=== PATIENT | female | born 1970 | race Caucasian/White ===

== ENCOUNTER → 2016-03-31 | Outpatient (CLI) | payer OTHER ==
[~2016-03-31] MED LIST: ASPCH81X PO; CHOL1000 PO; FERR324T PO; GLIP5TAB11 PO; LISI10TA PO; METFTAB PO; MULTCAP7 PO; MULTTAB58 PO; OMEG10007 PO; PRLSR20 PO; RIZA10TA18 PO; VTMB12100 PO; ZNTT/150 PO
[2016-03-31 12:56] LABS: ALT/SGPT 89 U/L (12-78); BLOOD UREA NITROGEN 13 mg/dl (7-18); BUN/CREATININE RATIO 17.6 (10-20); CALCIUM 9.1 mg/dl (8.5-10.1); CARBON DIOXIDE 25 mmol/L (21-32); CHLORIDE 102 mmol/L (98-107); CREATININE 0.72 mg/dl (0.60-1.20); GLUCOSE 199 mg/dl (70-99); POTASSIUM 4.2 mmol/L (3.5-5.1); SODIUM 137 mmol/L (136-145)
[2016-03-31 12:59] LABS: ALB/GLOB RATIO 1.1 (0.9-2); ALKALINE PHOSPHATASE 63 U/L (45-117); AST/SGOT 73 U/L (15-37)
[2016-03-31 13:02] LABS: ESTIMATED AVERAGE GLUCOSE 194 mg/dl; HA1C FLAG Normal (Normal)
== END | disposition home or self-care (01) ==
LOC: C.LABPVFM 10:03
PROVIDERS: ATTEND Family Medicine
DX: E11.65 Type 2 diabetes mellitus with hyperglycemia (principal)

== ENCOUNTER → 2016-05-19 | Outpatient (CLI) | payer OTHER ==
--- NOTE | 2016-05-19 13:57 | MAMMOGRAPHY REPORT ---
BILATERAL DIGITAL SCREENING MAMMOGRAM TOMOSYNTHESIS WITH CAD: 05/19/2016 TECHNIQUE: Breast tomosynthesis in addition to standard 2D mammography was performed. Current study was also evaluated with a Computer Aided Detection (CAD) system. COMPARISON: Comparison is made to exams dated: 12/12/2012 mammogram, 10/20/2010 mammogram, 11/10/2011 mammogram, 10/24/2010 mammogram, and 10/24/2010 ultrasound - [facility]. BREAST COMPOSITION: The tissue of both breasts is heterogeneously dense, which may obscure small ma sses. FINDINGS: No suspicious masses, calcifications, or areas of architectural distortion are noted in e ither breast. There has been no significant interval change compared to prior exams. IMPRESSION: ACR BI-RADS CATEGORY 1: NEGATIVE There is no mammographic evidence of malignancy. A 1 year screening mammogram is recommended. The p atient will receive written notification of the results. Approximately 10% of breast cancers are not detected with mammography. A negative mammographic repor t should not delay biopsy if a clinically suggestive mass is present. Heather Figueroa M.D. ah/:05/19/2016 12:05:04 Delivery Driver: Carmita CALDWELL(R)(M), [facility] letter sent: Normal 1/2 BI-RADS Code: ACR BI-RADS Category 1: Negative
== END | disposition home or self-care (01) ==
LOC: C.MAMM 10:39
PROVIDERS: ATTEND Family Medicine
DX: Z12.31 Encounter for screening mammogram for malignant neoplasm of breast (principal)

== ENCOUNTER → 2016-07-28 | Outpatient (CLI) | payer OTHER ==
[2016-07-28 18:10] LABS: ALT/SGPT 103 U/L (12-78); AST/SGOT 63 U/L (15-37); BLOOD UREA NITROGEN 17 mg/dl (7-18); BUN/CREATININE RATIO 23.2 (10-20); CALCIUM 8.9 mg/dl (8.5-10.1); CARBON DIOXIDE 26 mmol/L (21-32); CHLORIDE 104 mmol/L (98-107); CREATININE 0.74 mg/dl (0.60-1.20); GLUCOSE 184 mg/dl (70-99); POTASSIUM 4.2 mmol/L (3.5-5.1); SODIUM 139 mmol/L (136-145)
[2016-07-28 18:13] LABS: ALB/GLOB RATIO 1.1 (0.9-2); ALKALINE PHOSPHATASE 58 U/L (45-117); CHOLESTEROL 224 mg/dl (0-200); CHOLESTEROL/HDL RATIO 6.6; HDL CHOLESTEROL 34 mg/dl; LDL CHOLESTEROL CALCULATED 129 mg/dl; TRIGLYCERIDES 304 mg/dl (0-150); VERY LOW DENSITY LIPOPROT CALC 61 mg/dl
[2016-07-28 18:21] LABS: RATIO 6.6 mcg/mg (0-30.0)
[2016-07-29 07:14] LABS: ESTIMATED AVERAGE GLUCOSE 194 mg/dl; HA1C FLAG Normal (Normal)
== END | disposition home or self-care (01) ==
LOC: C.LABPVFM 10:18
PROVIDERS: ATTEND Family Medicine
DX: R74.8 Abnormal levels of other serum enzymes (principal)

== ENCOUNTER → 2016-08-04 | Outpatient (CLI) | payer OTHER | END | disposition home or self-care (01) | LOC: C.LABPVFM 08:44 | PROVIDERS: ATTEND Family Medicine | DX: E11.65 Type 2 diabetes mellitus with hyperglycemia (principal); R74.8 Abnormal levels of other serum enzymes ==

== ENCOUNTER → 2016-08-11 | Outpatient (CLI) | payer OTHER ==
--- NOTE | 2016-08-11 09:33 | DIAGNOSTIC IMAGING REPORT ---
BILIARY ULTRASOUND CLINICAL HISTORY: Elevated liver enzymes. Diabetes type 2. COMPARISON STUDY: 07/14/2007 FINDINGS: The pancreas appears sonographically normal. The liver is of increased echogenicity, nonspecific finding most often seen in hepatic steatosis. There are no focal hepatic masses. The gallbladder appears sonographically normal. There is no ductal dilatation. The common buttock measures 5 mm. There is no right-sided hydronephrosis. IMPRESSION: Increased hepatic echogenicity, a finding most likely secondary to hepatic steatosis. Otherwise normal study. Electronically signed by: Kenton Iniguez M.D. 08/11/2016 9:32 AM Dictated Date/Time: 08/11/2016 9:31 AM
== END | disposition home or self-care (01) ==
LOC: C.ULTR 08:41
PROVIDERS: ATTEND Family Medicine
DX: E11.65 Type 2 diabetes mellitus with hyperglycemia (principal); R74.8 Abnormal levels of other serum enzymes

== ENCOUNTER → 2016-08-17 | Outpatient (CLI) | payer OTHER | END | disposition home or self-care (01) | LOC: C.LABPVFM 16:20 | PROVIDERS: ATTEND Nurse Practitioner | DX: R30.0 Dysuria (principal) ==

== ENCOUNTER → 2016-10-21 | Outpatient (CLI) | payer OTHER | END | disposition home or self-care (01) | LOC: C.LABPVFM 07:57 | PROVIDERS: ATTEND Nurse Practitioner Family | DX: N39.0 Urinary tract infection, site not specified (principal) ==

== ENCOUNTER → 2016-11-03 | Outpatient (CLI) | payer OTHER ==
[2016-11-03 17:34] LABS: URINE APPEARANCE CLEAR (CLEAR); URINE BILIRUBIN NEG (NEG); URINE COLOR YELLOW; URINE NITRITE NEG (NEG); URINE PH 6.5 (4.5-7.5); URINE SPECIFIC GRAVITY 1.021 (1.000-1.030); UROBILINOGEN NEG (NEG)
[2016-11-03 17:43] LABS: MANUAL MICROSCOPIC REQUIRED? NO; REVIEW REQ? NO
[2016-11-03 18:21] LABS: ALT/SGPT 112 U/L (12-78); AST/SGOT 68 U/L (15-37); BLOOD UREA NITROGEN 11 mg/dl (7-18); BUN/CREATININE RATIO 14.9 (10-20); CALCIUM 9.1 mg/dl (8.5-10.1); CARBON DIOXIDE 27 mmol/L (21-32); CHLORIDE 103 mmol/L (98-107); CHOLESTEROL 199 mg/dl (0-200); CREATININE 0.75 mg/dl (0.60-1.20); GLUCOSE 148 mg/dl (70-99); POTASSIUM 4.1 mmol/L (3.5-5.1); SODIUM 139 mmol/L (136-145); TRIGLYCERIDES 406 mg/dl (0-150)
[2016-11-03 18:23] LABS: ALKALINE PHOSPHATASE 60 U/L (45-117)
[2016-11-03 18:31] LABS: CHOLESTEROL/HDL RATIO 6.4; HDL CHOLESTEROL 31 mg/dl
[2016-11-04 08:18] LABS: ESTIMATED AVERAGE GLUCOSE 177 mg/dl; HA1C FLAG Normal (Normal)
== END | disposition home or self-care (01) ==
LOC: C.LABPVFM 11:53
PROVIDERS: ATTEND Nurse Practitioner Family
DX: E78.5 Hyperlipidemia, unspecified (principal); E11.65 Type 2 diabetes mellitus with hyperglycemia; I10 Essential (primary) hypertension; R74.8 Abnormal levels of other serum enzymes; N39.0 Urinary tract infection, site not specified

== ENCOUNTER → 2016-12-15 | Outpatient (CLI) | payer OTHER ==
[2016-12-15 17:58] LABS: TOTAL IRON BINDING CAPACITY 420 mcg/dl (250-450)
[2016-12-21 17:35] LABS: IGA SERUM 148 mg/dL (81-463); TIS TRANS IGA 1 U/mL (<4)
== END | disposition home or self-care (01) ==
LOC: C.LABPVFM 15:43
PROVIDERS: ATTEND Physician Assistant
DX: R74.8 Abnormal levels of other serum enzymes (principal)

== ENCOUNTER 2016-12-20 10:19 | Emergency (ER) | payer OTHER ==
[~2016-12-20] VITALS: Ht 165.1 cm; Wt 98.7 kg
[~2016-12-20 10:19] MED LIST changes: -ASPCH81X PO; -CHOL1000 PO; -GLIP5TAB11 PO; -MULTCAP7 PO; -VTMB12100 PO
[2016-12-20 10:24] VITALS: TEMP 37; Ht 165.1 cm; Wt 98.7 kg
[2016-12-20 10:47] VITALS: O2SAT 99
[2016-12-20] MEDS ORDERED: MULTCAP7 PO (11:06)
[2016-12-20] MEDS ORDERED: VTMB12100 PO (11:06)
[2016-12-20] MEDS ORDERED: CHOL1000 PO (11:06)
[2016-12-20] MEDS ORDERED: GLIP5TAB11 PO (11:06)
[2016-12-20] MEDS ORDERED: SODIUM CHLORIDE 0.9% 1000ML 1,000 ML IV ONE (11:27)
[2016-12-20] MEDS ORDERED: SODIUM CHLORIDE 0.9% 1000ML 1,000 ML IV STA (11:27)
[2016-12-20 12:12] LABS: BASO % 0.2 %; BASO ABS # 0.02 K/uL (0-0.2); COMPLETE YES; EOS % 1.5 %; HEMATOCRIT 42.3 % (37-47); IG% 0.2 %; LYMPH % 29.7 %; LYMPH ABS # 2.89 K/uL (1.2-3.4); MEAN CELL VOLUME 87.6 fL (80-100); MEAN CORPUSCULAR HEMOGLOBIN 30.2 pg (25-34); MEAN CORPUSCULAR HGB CONC 34.5 g/dl (32-36); MEAN PLATELET VOLUME 10.6 fL (7.4-10.4); MONO % 5.9 %; NEUT % 62.5 %; PLATELET COUNT 293 K/uL (130-400); RED BLOOD COUNT 4.83 M/uL (4.2-5.4); WHITE BLOOD COUNT 9.72 K/uL (4.8-10.8)
[2016-12-20 12:28] LABS: BUN/CREATININE RATIO 14.6 (10-20); CALCIUM 9.9 mg/dl (8.5-10.1); CREATININE 0.78 mg/dl (0.60-1.20); POTASSIUM 4.1 mmol/L (3.5-5.1)
--- NOTE | 2016-12-20 12:50 | EMERGENCY ROOM VISIT NOTE ---
History Report prepared by Joesph: Taina Peter Under the Supervision of: Dr. Kory Sewell M.D. First contact with patient: 11:19 Chief Complaint: CHOKING Stated Complaint: DIFFICULTY SWALLOWING Nursing Triage Summary: pt states having trouble swallowing x 1 week worsening today, pt states seen physician and scheduled for barium swallow this sunday, pt states when swallowing coffe, "I burped and coughed back up some, I notied last night when I took my metformin, they felt like they were stuck so I didn't take my medicine this morning." Pt states sore throat left side. History of Present Illness The patient is a 46 year old female who presents to the Emergency Room with complaints of worsening problems swallowing for the past week. The patient has had this multiple times in the past. In 2006 she had an EGD, was dilated, and was placed on Omeprazole. She was dilated again sometime in 2011-. She has had no problems until recently. The patient has had difficulty swallowing. She saw a PA-Priyanka at her GI office last week and had blood work. She was scheduled for a barium swallow at the end of the week. The patient states that she has been having trouble swallowing anything now. She has difficulty swallowing pills. She feels like liquids are coming back up when she swallows. The patient states that she is constantly clearing her throat. She called her GI office today and they moved up her barium swallow to tomorrow, but she is concerned that she won' t be able to swallow for this test. The patient rates her pain as a 5/10 in severity. Source of History: patient Onset: 1 week ago Position: throat Symptom Intensity: 5/10 Timing: worsening Modifying Factors (Worsening): other (swallowing) Review of Systems See HPI for pertinent positives & negatives. A total of 10 systems reviewed and were otherwise negative. Past Medical & Surgical Medical Problems: (1) Cervicalgia (2) Esophageal reflux (3) Fibroids (4) Menorrhagia Old medical records were reviewed. Nurse's notes were reviewed and I agree with. Family History No pertinent history stated. Social History Smoking Status: Never Smoker Drug Use: none Marital Status: Housing Status: lives with significant other Occupation Status: employed Current/Historical Medications Scheduled Cholecalciferol (Vitamin D3), 1,000 INTER.UNIT PO DAILY Cyanocobalamin (Vitamin B-12), Unknown Dose PO DAILY Glipizide (Glucotrol), 5 MG PO BID Lisinopril (Prinivil), 10 MG PO DAILY Metformin Ext Rel (Glucophage Ext Rel), 1,000 MG PO BID Multiple Vitamins W/ Minerals (Eye Vitamins), 1 TAB PO DAILY Omeprazole (Prilosec), 20 MG PO DAILY Ranitidine (Zantac), 150 MG PO DAILY PRN Rizatriptan Benzoate (Maxalt), 10 MG PO PRN Allergies Coded Allergies: No Known Allergies (Unverified , 07/14/07) Physical Exam Vital Signs Date Time Temp Pulse Resp B/P (MAP) Pulse Ox O2 Delivery O2 Flow Rate FiO2 12/20/16 13:55 87 15 134/91 98 12/20/16 13:03 95 16 143/88 94 Room Air 12/20/16 11:47 105 16 150/108 100 Room Air 12/20/16 10:47 99 Room Air 12/20/16 10:24 37.0 97 18 161/117 98 Room Air Physical Exam General: Well developed well nourished non ill appearing middle aged female in no acute distress, breathing comfortably on room air. Normal speech HEENT: Normal cephalic atraumatic. Pupils are equal round and reactive to light. Extraocular movements are intact. Oropharynx is pink with moist mucous membranes. No swelling of the mouth lips or tongue. No hoarse voice, appears to be swallowing secretions. Neck: Supple with a midline trachea. No meningeal signs or stiffness, no JVD or bruits. No Stridor. Chest: Clear to auscultation bilaterally. No wheezes or rhonchi. No increased work of breathing. Heart: regular rate and rhythm. Abdomen: Soft nontender, nondistended without rebound guarding or rigidity. Extremities: No cyanosis clubbing or edema. No calf tenderness or assymetry Spine/Back. Non tender to palpation. No CVA tenderness Skin: Good turgor without rashes. Neurologic exam: Cranial nerves two through 12 are intact. Motor and sensation are intact and symmetrical throughout. Medical Decision & Procedures ER Provider Diagnostic Interpretation: Chest x-ray preliminary report per Dr. Lennon was normal. Laboratory Results 12/20/16 11:50 Red Blood Count 4.83, Mean Corpuscular Volume 87.6, Mean Corpuscular Hemoglobin 30.2, Mean Corpuscular Hemoglobin Concent 34.5, Mean Platelet Volume 10.6, Neutrophils (%) (Auto) 62.5, Lymphocytes (%) (Auto) 29.7, Monocytes (%) (Auto) 5.9, Eosinophils (%) (Auto) 1.5, Basophils (%) (Auto) 0.2, Neutrophils # (Auto) 6.07, Lymphocytes # (Auto) 2.89, Monocytes # (Auto) 0.57, Eosinophils # (Auto) 0.15, Basophils # (Auto) 0.02 12/20/16 11:50 Test 12/20/16 11:50 White Blood Count 9.72 K/uL (4.8-10.8) Red Blood Count 4.83 M/uL (4.2-5.4) Hemoglobin 14.6 g/dL (12.0-16.0) Hematocrit 42.3 % (37-47) Mean Corpuscular Volume 87.6 fL (80-100) Mean Corpuscular Hemoglobin 30.2 pg (25-34) Mean Corpuscular Hemoglobin Concent 34.5 g/dl (32-36) Platelet Count 293 K/uL (130-400) Mean Platelet Volume 10.6 fL (7.4-10.4) Neutrophils (%) (Auto) 62.5 % Lymphocytes (%) (Auto) 29.7 % Monocytes (%) (Auto) 5.9 % Eosinophils (%) (Auto) 1.5 % Basophils (%) (Auto) 0.2 % Neutrophils # (Auto) 6.07 K/uL (1.4-6.5) Lymphocytes # (Auto) 2.89 K/uL (1.2-3.4) Monocytes # (Auto) 0.57 K/uL (0.11-0.59) Eosinophils # (Auto) 0.15 K/uL (0-0.5) Basophils # (Auto) 0.02 K/uL (0-0.2) RDW Standard Deviation 40.9 fL (36.4-46.3) RDW Coefficient of Variation 12.7 % (11.5-14.5) Immature Granulocyte % (Auto) 0.2 % Immature Granulocyte # (Auto) 0.02 K/uL (0.00-0.02) Anion Gap 9.0 mmol/L (3-11) Est Creatinine Clear Calc Drug Dose 104.8 ml/min Estimated GFR () 105.7 Estimated GFR (Non- 91.2 BUN/Creatinine Ratio 14.6 (10-20) Calcium Level 9.9 mg/dl (8.5-10.1) Total Bilirubin 0.4 mg/dl (0.2-1) Direct Bilirubin 0.1 mg/dl (0-0.2) Aspartate Amino Transf (AST/SGOT) 51 U/L (15-37) Alanine Aminotransferase (ALT/SGPT) 86 U/L (12-78) Alkaline Phosphatase 67 U/L (45-117) Total Protein 8.5 gm/dl (6.4-8.2) Albumin 4.3 gm/dl (3.4-5.0) Lipase 157 U/L (73-393) Laboratory studies as stated above per my review. Medications Administered Medications (Trade) Dose Ordered Sig/Shai Route Start Time Stop Time Status Last Admin Dose Admin Sodium Chloride 1,000 ml @ 999 mls/hr Q1H1M STAT IV 12/20/16 11:27 12/20/16 12:27 DC 12/20/16 11:51 999 MLS/HR ECG Indication: other Rate (beats per minute): 94 Rhythm: normal sinus Findings: no acute ischemic change, no ectopy Comparison ECG Date: 05/04/2012 Change: no significant change ED Course 1119: Past medical records reviewed. The patient was evaluated in room A12B, and a complete history and physical examination were performed. 1127: NSS 1000 ml @ 150 mls/hr IV, NSS 1000 ml @ 999 mls/hr IV 1144: I spoke with Dr. Valadez of GI. We discussed the patient's treatment plan. His office will call the patient tomorrow and plans to scope her tomorrow. He requested she consume only clear liquids for the rest of the day today. 1342: I reassessed the patient at this time. She is feeling better and resting comfortably. I discussed the results and treatment plan with the patient. I answered all pertaining questions that she had. She expressed understanding and verbalized agreement. The patient will be discharged home. Medical Decision Differential diagnoses includes food bolus, esophageal stricture, electrolyte or metabolic abnormality. This patient comes in as described above. She has a history of esophageal stricture. She saw her GI specialist in as scheduled of a barium swallow this coming Sunday. She feels that she's gotten worse and that has had an increasing hard time swallowing her pills at times. She appears well on exam. She is not drooling. She was able drink some water here. IV access established and she was hydrated liter IV normal saline. She has no significant electrolyte or metabolic abnormality. EKG does not suggest cardiac disease. She's no had no acute electrolyte or metabolic abnormalities. Chest x -ray was unremarkable. I discuss case with Dr. Valadez, her demographic analyst, he wants to have her use liquids today and keep nothing by mouth after midnight they will call her likely scope her tomorrow. At this point, she has nothing to suggest acute food bolus. The patient was happy with plan and was discharged home with close follow-up. Medication Reconcilliation Current Medication List: was personally reviewed by me Blood Pressure Screening Patient's blood pressure: Normal blood pressure Consults Time Called: 1141 Consulting Physician: Dr. Valadez Returned Call: [phone] Valadez of GI. We discussed the patient's treatment plan. His office will call the patient tomorrow and plans to scope her tomorrow. He requested she consume only clear liquids for the rest of the day today. Impression Primary Impression: Dysphagia Additional Impression: Esophageal stricture Scribe Attestation The scribe's documentation has been prepared under my direction and personally reviewed by me in its entirety. I confirm that the note above accurately reflects all work, treatment, procedures, and medical decision making performed by me. Departure Information Dispostion Home / Self-Care Referrals Serafin Koch M.D. (PCP) Forms HOME CARE DOCUMENTATION FORM, IMPORTANT VISIT INFORMATION, WORK / SCHOOL INSTRUCTIONS Patient Instructions My [facility] Additional Instructions Rest. Drink plenty of fluids. Use only clear liquids today Follow-up with Dr. valadez tomorrow, he'll be calling you Do not eat or drink anything after midnight Return if: Worsening of symptoms, fever or chills, shortness of breath, any new problems or concerns. Problem Qualifiers Primary Impression: Dysphagia Dysphagia type: unspecified Qualified Codes: R13.10 - Dysphagia, unspecified
[2016-12-20 13:55] VITALS: BP 134/91; PULSE 87; O2SAT 98
--- NOTE | 2016-12-20 16:58 | DIAGNOSTIC IMAGING REPORT ---
CHEST ONE VIEW PORTABLE CLINICAL HISTORY: CHEST PAIN pain COMPARISON STUDY: 05/04/2012 FINDINGS: The bones soft tissues and hemidiaphragms are normal. The cardiomediastinal silhouette is normal. The lungs are clear. The pulmonary vasculature is normal. IMPRESSION: Negative chest. The above report was generated using voice recognition software. It may contain grammatical, syntax or spelling errors. Electronically signed by: Ramy Kay M.D. 12/20/2016 4:57 PM Dictated Date/Time: 12/20/2016 4:57 PM
[2016-12-21] MEDS ORDERED: ASPCH81X PO (12:34)
[2016-12-21] MEDS ORDERED: PROPOFOL IV EMULSION 10 MG/ML 20 ML VIAL IV ONE (13:19)
[2016-12-21] MEDS ORDERED: LIDOCAINE HCL 2% 2 ML VIAL (20MG/ML) ONE (13:19)
== END 2016-12-20 13:57 | disposition home or self-care (01) ==
LOC: C.EDB 10:21 → C.EDA 13:57
DX: K22.2 Esophageal obstruction (principal); K21.9 Gastro-esophageal reflux disease without esophagitis; Z79.84 Long term (current) use of oral hypoglycemic drugs; Z79.899 Other long term (current) drug therapy

== ENCOUNTER → 2016-12-21 | Day surgery (SDC) | payer OTHER ==
[~2016-12-21] VITALS: Ht 165.1 cm; Wt 100.0 kg
[~2016-12-21] MED LIST changes: +ASPCH81X PO; +CHOL1000 PO; +GLIP5TAB11 PO; +LIDOCAINE HCL 2% 2 ML VIAL (20MG/ML) INFIL ONE; +MULTCAP7 PO; +PROPOFOL IV EMULSION 10 MG/ML 20 ML VIAL IV ONE; +SODIUM CHLORIDE 0.9% 500ML 500 ML IV ONE; +VTMB12100 PO
[2016-12-21 12:10] VITALS: Ht 165.1 cm; Wt 100.0 kg
--- NOTE | 2016-12-21 12:25 | Endo History and Physical ---
History & Physical Date of Service: Dec 21, 2016. Chief Complaint: Dysphagia Referring Physician: Dr. Koch History of Present Illness 46 yo CF who presents for EGD secondary to dysphagia. Past Surgical History Hx Cardiac Surgery: No Hx Internal Defibrillator: No Hx Pacemaker: No Hx Abdominal Surgery: Yes (Hysterectomy 2013) Hx of Implantable Prosthesis: No Hx Post-Op Nausea and Vomiting: No Hx Cancer Surgery: No Hx Thoracic Surgery: No Hx Orthopedic: No Social History Smoking Status: Never Smoker Hx Alcohol Use: No Allergies Coded Allergies: No Known Allergies (Unverified , 07/14/07) Current Medications Reported Home Medications Medications Dose Route/Sig Max Daily Dose Days Date Category Glucotrol (Glipizide) 5 Mg Tab 5 Mg PO BID 12/20/16 Reported Eye Vitamins (Multiple Vitamins W/ Minerals) 1 Cap Cap 1 Tab PO DAILY 12/20/16 Reported Vitamin D3 (Cholecalciferol) 1,000 Unit Tab 1,000 Inter.unit PO DAILY 12/20/16 Reported Vitamin B-12 (Cyanocobalamin) Unknown Strength Tab Unknown Dose PO DAILY 12/20/16 Reported Glucophage Ext Rel (Metformin HCl) 500 Mg Tab 1,000 Mg PO BID 05/04/12 Reported Prinivil (Lisinopril) 10 Mg Tab 10 Mg PO DAILY 05/04/12 Reported Prilosec (Omeprazole) 20 Mg Capcr 20 Mg PO DAILY 07/14/07 Reported Zantac (Ranitidine HCl) 150 Mg Tab 150 Mg PO DAILY PRN 07/14/07 Reported Maxalt (Rizatriptan Benzoate) 10 Mg Tab 10 Mg PO PRN 07/14/07 Reported Vital Signs Weight (Kilograms): 100 Height (Feet): 5 Height (Inches): 5 Physical Exam General Appearance: WD/WN, no apparent distress Respiratory/Chest: Auscultation: breath sounds normal Cardiovascular: Heart Auscultation: RRR Abdomen: Bowel Sounds: normal Inspection & Palpation: soft, non-distended, no tenderness, guarding & rebound Assessment and Plan Assessment: 46 yo CF who presents for EGD secondary to dysphagia. Plan: Proceed with EGD.
[2016-12-21 12:28] VITALS: TEMP 36.8
--- NOTE | 2016-12-21 13:25 | Anesthesiology Progress Note ---
Anesthesia Post Op Note Date & Time Dec 21, 2016 at 13:25 Vital Signs Pain Intensity: 5 Vital Signs Past 12 Hours Date Time Temp Pulse Resp B/P (MAP) Pulse Ox O2 Delivery O2 Flow Rate FiO2 12/21/16 13:20 92 16 148/80 (102) 98 Room Air 12/21/16 12:28 36.8 95 16 162/90 (114) 98 Room Air Notes Mental Status: alert / awake / arousable, participated in evaluation Pt Amnestic to Procedure: Yes Nausea / Vomiting: adequately controlled Pain: adequately controlled Airway Patency, RR, SpO2: stable & adequate BP & HR: stable & adequate Hydration State: stable & adequate Anesthetic Complications: no major complications apparent
--- NOTE | 2016-12-21 13:25 | GI REPORT ---
Procedure Date: 12/21/2016 12:44 PM Procedure: Upper GI endoscopy Indications: Dysphagia Medicines: Monitored Anesthesia Care Complications: No immediate complications. Estimated Blood Loss: Estimated blood loss: none. Procedure: Pre-Anesthesia Assessment: - Prior to the procedure, a History and Physical was performed, and patient medications and allergies were reviewed. The patient's tolerance of previous anesthesia was also reviewed. The risks and benefits of the procedure and the sedation options and risks were discussed with the patient. All questions were answered, and informed consent was obtained. Prior Anticoagulants: The patient has taken aspirin, last dose was 2 days prior to procedure. ASA Grade Assessment: II - A patient with mild systemic disease. After reviewing the risks and benefits, the patient was deemed in satisfactory condition to undergo the procedure. After obtaining informed consent, the endoscope was passed under direct vision. Throughout the procedure, the patient's blood pressure, pulse, and oxygen saturations were monitored continuously. The scope was introduced through the mouth, and advanced to the second part of duodenum. The upper GI endoscopy was accomplished without difficulty. The patient tolerated the procedure well. Findings: No endoscopic abnormality was evident in the esophagus to explain the patient's complaint of dysphagia. It was decided, however, to proceed with dilation of the entire esophagus. A guidewire was placed and the scope was withdrawn. Dilation was performed with a Savary dilator with no resistance at 51 Fr. Multiple sessile polyps with no stigmata of recent bleeding were found in the stomach. Biopsies were taken with a cold forceps for histology. The examined duodenum was normal. Impression: - No endoscopic esophageal abnormality to explain patient's dysphagia. Esophagus dilated. Dilated. - Multiple gastric polyps. Biopsied. - Normal examined duodenum. Recommendation: - Continue present medications. - Await pathology results. - Resume previous diet. - Return to primary care physician as previously scheduled. Keshawn Kraft, DO 12/21/2016 1:25:06 PM This report has been signed electronically. Note Initiated On: 12/21/2016 12:44 PM I attest to the content of the Intraoperative Record and orders documented therein, exceptions below
--- NOTE | 2016-12-21 13:29 | Discharge Instructions ---
Endoscopy Patient Instructions Date / Procedure(s) Performed Dec 21, 2016. EGD Allergy Information Uncoded Allergies: JAYLA (Allergy, Unknown, RASH, 12/21/16) Discharge Date / Findings Dec 21, 2016. Gastric polyps s/p biopsies Esophageal dilation Provider Instructions Activity Restrictions - No exercising or heavy lifting for 24 hours. - Do not drink alcohol the day of the procedure. - Do not drive a car or operate machinery until the day after the procedure. - Do not make any important decisions or sign important papers in 24 hours after the procedure. Following Day: - Return to full activity which may include returning to work/school. Diet Start your diet with liquids and light foods (jello, soup, juice, toast). Then eat your usual diet if not nauseated. Treatment For Common After Affects For mild abdominal pain, bloating, or excessive gas: - Rest - Eat lightly - Lie on right side Follow-Up Information Follow-up with Dr Alvarez as scheduled Anesthesia Information What You Should Know You have had a procedure that required some medicine to reduce anxiety and discomfort. This treatment is called moderate sedation. After receiving the treatment, you may be sleepy, but you will be able to breathe on your own. The effects of the treatment may last for several hours. Follow these instructions along with Activity/Diet recommendations noted above: * Do NOT do anything where dizziness or clumsiness would be dangerous. * Rest quietly at home today, then you can be up and about tomorrow. * Have a responsible person stay with you the rest of today. * You may have had an I.V. today. If so, you may take the dressing off later today. Recommendations Call your doctor if: * Trouble breathing * Continuous vomiting for more than 24 hours * Temperature above 101 degrees * Severe abdominal pain or bloating * Pain not relieved by pain medicine ordered * There is increased drainage or redness from any incision * A large amount of rectal bleeding greater than 2-3 tablespoons. (If you had a polyp/s removed or have hemorrhoids, a small amount of blood - from the rectum is to be expected.) * You have any unanswered questions or concerns. IN THE EVENT OF A SERIOUS EMERGENCY, GO TO THE NEAREST EMERGENCY ROOM Your discharge instructions were prepared by provider Keshawn Kraft. Patient Instructions Signature Page Beronica Rosenbaum Patient (or Guardian) Signature/Date: I have read and understand the instructions given to me by my caregivers. Caregiver/RN/Doctor Signature/Date: The above-named patient and/or guardian has received patient instructions on this date. + Original Patient Signature Page (only) stays with chart. Please make copy for patient.
[2016-12-21 13:50] VITALS: BP 140/88; PULSE 88; O2SAT 98
== END | disposition home or self-care (01) ==
LOC: C.GI 11:37
PROVIDERS: ATTEND Internal Medicine
DX: R13.10 Dysphagia, unspecified (principal); D13.1 Benign neoplasm of stomach

== ENCOUNTER → 2017-04-20 | Outpatient (CLI) | payer OTHER ==
[~2017-04-20] MED LIST changes: -FERR324T PO; -LIDOCAINE HCL 2% 2 ML VIAL (20MG/ML) INFIL ONE; -MULTTAB58 PO; -OMEG10007 PO; -PROPOFOL IV EMULSION 10 MG/ML 20 ML VIAL IV ONE; -SODIUM CHLORIDE 0.9% 500ML 500 ML IV ONE
[2017-04-20 13:36] LABS: ALBUMIN 3.8 gm/dl (3.4-5.0); ALT/SGPT 51 U/L (12-78); BLOOD UREA NITROGEN 13 mg/dl (7-18); CALCIUM 9.3 mg/dl (8.5-10.1); CARBON DIOXIDE 25 mmol/L (21-32); CHOLESTEROL 203 mg/dl (0-200); GLUCOSE 174 mg/dl (70-99); POTASSIUM 3.8 mmol/L (3.5-5.1); SODIUM 134 mmol/L (136-145)
[2017-04-20 13:40] LABS: ALKALINE PHOSPHATASE 56 U/L (45-117); AST/SGOT 24 U/L (15-37); LDL CHOLESTEROL CALCULATED 111 mg/dl; TOTAL PROTEIN 7.8 gm/dl (6.4-8.2)
[2017-04-20 13:43] LABS: HEMOGLOBIN A1C 7.5 % (4.5-5.6)
== END | disposition home or self-care (01) ==
LOC: C.LABPVFM 10:08
PROVIDERS: ATTEND Family Medicine
DX: I10 Essential (primary) hypertension (principal); K21.0 Gastro-esophageal reflux disease with esophagitis; G43.009 Migraine without aura, not intractable, without status migrainosus; E78.5 Hyperlipidemia, unspecified; R74.8 Abnormal levels of other serum enzymes; E11.65 Type 2 diabetes mellitus with hyperglycemia

== ENCOUNTER → 2017-05-25 | Outpatient (CLI) | payer OTHER ==
[~2017-05-25] MED LIST changes: +RANI150T85 PO; -ZNTT/150 PO
--- NOTE | 2017-05-25 15:44 | MAMMOGRAPHY REPORT ---
BILATERAL DIGITAL SCREENING MAMMOGRAM TOMOSYNTHESIS WITH CAD: 05/25/2017 CLINICAL HISTORY: Routine screening. Patient has no complaints. TECHNIQUE: Breast tomosynthesis in addition to standard 2D mammography was performed. Current study was also evaluated with a Computer Aided Detection (CAD) system. COMPARISON: Comparison is made to exams dated: 05/19/2016 mammogram, 12/12/2012 mammogram, 11/10/2011 m ammogram, 11/03/2011 mammogram, 10/20/2010 mammogram, and 10/24/2010 mammogram - [facility]. BREAST COMPOSITION: The tissue of both breasts is heterogeneously dense, which may obscure small mas ses. FINDINGS: No suspicious masses, calcifications, or areas of architectural distortion are noted in ei ther breast. There has been no significant interval change compared to prior exams. IMPRESSION: ACR BI-RADS CATEGORY 1: NEGATIVE There is no mammographic evidence of malignancy. A 1 year screening mammogram is recommended. The pa tient will receive written notification of the results. Approximately 10% of breast cancers are not detected with mammography. A negative mammographic report should not delay biopsy if a clinically suggestive mass is present. Heather Figueroa M.D. ah/:05/25/2017 13:41:14 Support Services Specialist: Carmita CALDWELL(R)(M), [facility] letter sent: Normal 1/2 BI-RADS Code: ACR BI-RADS Category 1: Negative
== END | disposition home or self-care (01) ==
LOC: C.MAMM 13:14
PROVIDERS: ATTEND Family Medicine
DX: Z12.31 Encounter for screening mammogram for malignant neoplasm of breast (principal)